=== PATIENT | female | born 1965 | race Caucasian/White ===

== ENCOUNTER 2020-06-05 19:54 | Emergency (ER) | payer OTHER ==
[~2020-06-05] VITALS: Ht 175.3 cm; Wt 140.9 kg
[2020-06-05] MEDS ORDERED: MEDROL DOSEPAK4 MG PO (21:04)
[2020-06-05 21:12] LABS: EOS # 0.1 (0.04-0.40); EOS % 0.6 % (1.0-5.0); HEMATOCRIT 43.5 % (37.0-47.0); HEMOGLOBIN 14.2 g/dL (12.5-16.0); LYMPH# 3.4 (1.50-4.00); MEAN CELL VOLUME 94 fl (78-100); MEAN CORPUSCULAR HEMOGLOBIN 31 pg (27-31); MEAN CORPUSCULAR HGB CONC 33 g/dL (33-37); MEAN PLATELET VOLUME 10.7 fl (7.4-10.4); MONO # 1.3 (0.20-0.80); NEU # 6.9 (1.40-6.50); PLATELET COUNT 249 K/mm3 (130-400); RED BLOOD COUNT 4.62 M/mm3 (4.10-5.30); RED CELL DISTRIBUTION WIDTH 12.6 % (11.5-14.5); WHITE BLOOD COUNT 11.6 K/mm3 (4.8-10.8)
[2020-06-05 21:23] LABS: ALBUMIN 3.6 g/dL (3.5-5.0); POTASSIUM 4.3 mmol/L (3.5-5.1)
[2020-06-05 21:25] LABS: CALCIUM 8.9 mg/dL (8.3-10.5)
[2020-06-05 21:26] LABS: TOTAL PROTEIN 7.2 g/dL (6.4-8.3)
[2020-06-05 21:28] LABS: TOTAL BILIRUBIN 0.6 mg/dL (0.2-1.2)
[2020-06-05 22:29] VITALS: BP 167/78
== END 2020-06-05 22:30 | disposition home or self-care (01) ==
LOC: ED 19:54
PROVIDERS: Nurse Practitioner Family
DX: M79.89 Other specified soft tissue disorders (principal); M43.22 Fusion of spine, cervical region; R94.5 Abnormal results of liver function studies; Z98.61 Coronary angioplasty status; Z88.0 Allergy status to penicillin; Z79.891 Long term (current) use of opiate analgesic
CPT/HCPCS: J1100